=== PATIENT | female | born 1940 | race Caucasian/White ===

== ENCOUNTER 2018-05-07 14:53 | Inpatient (IN) | payer OTHER ==
[~2018-05-07] VITALS: Ht 157.5 cm; Wt 72.0 kg
[~2018-05-07 14:53] MED LIST: ALEVE220 M2 PO; AMBIEN10 MG PO; AMLODIPINE BESYL5 MG PO; AZITHROMYCIN500 MG PO; GLIPIZIDE10 MG PO; LISINOPRIL2.5 MG PO; METFORMIN HCL500 MG PO; PRAVASTATIN SOD40 MG PO; SLEEP SOFTGEL1 EACH PO; TRIAMCINOLONE A15 G2
[2018-05-07] MEDS ORDERED: PERCOCET 5/31 TABLET PO (18:23)
[2018-05-07 19:04] LABS: HEMATOCRIT 35.2 % (36.0-46.0); HEMOGLOBIN 12.4 G/DL (11.9-15.5); MCH 29.7 PG (29.0-34.0); MCHC 35.2 G/DL (30.0-36.0); MCV 84.4 FL (83-99); PLATELET COUNT 184 K/uL (156-360); RBC DIS.WIDTH-CV 13.5 % (11.8-14.6); RBC DIS.WIDTH-SD 42.3 % (39-53); RED BLOOD COUNT 4.17 M/uL (3.80-5.20); WHITE BLOOD COUNT 15.3 K/uL (4.1-10.2)
[2018-05-07] MEDS ORDERED: AMLODIPINE BESY10 MG PO (19:04)
[2018-05-07] MEDS ORDERED: ALPRAZOLAM0.25 M2 PO (19:10)
[2018-05-07] MEDS ORDERED: ZOLPIDEM TARTRA10 MG PO (19:10)
[2018-05-07 19:12] LABS: CHLORIDE 104 mEq/L (99-109); POTASSIUM 3.6 mEq/L (3.7-5.4); SODIUM 136 mEq/L (136-147)
[2018-05-07 19:13] LABS: GLUCOSE 220 mg/dL (70-99)
[2018-05-07 19:17] LABS: CREATININE 0.8 mg/dL (0.6-1.3); GFR ESTIMATE (CALCULATED) > 59 mL/min/
[2018-05-07 19:18] LABS: UREA NITROGEN (BUN) 20 mg/dL (9-23)
[2018-05-07 20:31] VITALS: BP 155/65
[2018-05-07 23:04] VITALS: BP 131/62
[2018-05-08 04:45] VITALS: BP 122/61
[2018-05-08 07:22] LABS: APPEARANCE SL.HAZY ((CLEAR)); BILIRUBIN NEGATIVE; BLOOD NEGATIVE; COLOR YELLOW ((YELLOW)); GLUCOSE (STRIP) NEGATIVE; KETONES 5; LEUKOCYTES TRACE; NITRITE NEGATIVE; PROTEIN (STRIP) 30; SPECIFIC GRAVITY 1.023 (1.000-1.030); UROBILINOGEN 0.2 MG/DL (0.2-1.0)
[2018-05-08 07:41] LABS: BACTERIA RARE /HPF; EPITHELIAL CELLS 2+ /HPF; MUCUS TRACE /LPF; RED BLOOD CELLS 0-5 /HPF (0-5); WHITE BLOOD CELLS 0-5 /HPF (0-5)
[2018-05-08 08:07] VITALS: BP 139/72
[2018-05-08 11:28] VITALS: BP 121/78
[2018-05-08 15:59] VITALS: BP 120/64
[2018-05-08 19:36] VITALS: BP 129/61
[2018-05-08 23:53] VITALS: BP 140/59
[2018-05-09 04:14] VITALS: BP 118/56
[2018-05-09 08:29] VITALS: BP 120/63
[2018-05-09 11:22] VITALS: BP 108/59
[2018-05-09 16:09] VITALS: BP 122/64
[2018-05-09 19:17] VITALS: BP 107/59
[2018-05-09 23:14] VITALS: BP 131/62
[2018-05-10 07:36] VITALS: BP 120/59
[2018-05-10 07:40] LABS: BASOPHIL (%) 0.4 % (0-1); EOSINOPHIL (%) 1.8 % (0-5); EOSINOPHIL COUNT 0.1 K/uL (0-0.3); HEMATOCRIT 29.4 % (36.0-46.0); IMMATURE GRANULOCYTE (%) 0.6 % (0.0-0.7); LYMPHOCYTE (%) 18.5 % (15-42); LYMPHOCYTE COUNT 1.5 K/uL (1.0-2.8); MCH 29.4 PG (29.0-34.0); MCV 86.5 FL (83-99); MONOCYTE (%) 14.1 % (3-12); MONOCYTE COUNT 1.1 K/uL (0-0.8); NEUTROPHIL (%) 64.6 % (45-76); NEUTROPHIL COUNT 5.1 K/uL (1.8-6.4); PLATELET COUNT 169 K/uL (156-360); RBC DIS.WIDTH-CV 13.8 % (11.8-14.6); RBC DIS.WIDTH-SD 43.1 % (39-53); WHITE BLOOD COUNT 7.9 K/uL (4.1-10.2)
[2018-05-10 07:53] LABS: CHLORIDE 103 MEQ/L (99-109); CREATININE 0.5 MG/DL (0.6-1.3); GFR ESTIMATE (CALCULATED) > 59 mL/min/; POTASSIUM 3.6 MEQ/L (3.7-5.4); SODIUM 135 MEQ/L (136-147); UREA NITROGEN (BUN) 14 mg/dL (9-23)
[2018-05-10 07:54] LABS: GLUCOSE 109 mg/dL (70-99)
[2018-05-10 11:01] VITALS: BP 113/59
[2018-05-10 15:13] VITALS: BP 119/59
[2018-05-11 00:07] VITALS: BP 136/70
[2018-05-11 07:52] VITALS: BP 157/74
[2018-05-11 16:01] VITALS: BP 134/67
[2018-05-11 23:55] VITALS: BP 148/70
[2018-05-12 07:36] VITALS: BP 150/67
[2018-05-12 15:59] VITALS: BP 130/67
[2018-05-12] MEDS ORDERED: ENDOCET 5-3251 EACH PO (18:42)
[2018-05-12] MEDS ORDERED: NOVOLOG 10100 UNITS/ SC (18:42)
[2018-05-12] MEDS ORDERED: KLOR-CON M1010 MEQ PO (18:42)
[2018-05-12 23:45] VITALS: BP 141/77
[2018-05-13 07:28] VITALS: BP 151/72
[2018-05-13 15:20] VITALS: BP 132/70
[2018-05-13 23:06] VITALS: BP 131/63
[2018-05-14 08:10] VITALS: BP 154/70
[2018-05-14 14:57] VITALS: BP 136/70
[2018-05-14 23:20] VITALS: BP 129/76
[2018-05-15 07:47] VITALS: BP 135/66
[2018-05-15 15:47] VITALS: BP 130/63
[2018-05-15 23:23] VITALS: BP 137/78
[2018-05-16 08:41] VITALS: BP 13/65
== END 2018-05-16 12:53 | DRG 563 ==
LOC: EME 14:53 → 3EAST 18:55 → EDOF 18:55 → ENRESERV 19:07 → 3EAST 20:22
PROVIDERS: Emergency Medicine; Internal Medicine
DX: S42.232A 3-part fracture of surgical neck of left humerus, initial encounter for closed fracture (principal); S00.83XA Contusion of other part of head, initial encounter; W01.0XXA Fall on same level from slipping, tripping and stumbling without subsequent striking against object, initial encounter; Y93.G3 Activity, cooking and baking; Y92.000 Kitchen of unspecified non-institutional (private) residence as the place of occurrence of the external cause; E87.6 Hypokalemia; I10 Essential (primary) hypertension; E78.5 Hyperlipidemia, unspecified; F32.9 Major depressive disorder, single episode, unspecified; E11.9 Type 2 diabetes mellitus without complications; E66.9 Obesity, unspecified; D64.9 Anemia, unspecified; E53.8 Deficiency of other specified B group vitamins; F41.9 Anxiety disorder, unspecified; G47.00 Insomnia, unspecified; Z87.11 Personal history of peptic ulcer disease; Z88.2 Allergy status to sulfonamides; Z68.29 Body mass index [BMI] 29.0-29.9, adult
CPT/HCPCS: 70450; 71045; 73030; 73200; 80048; 81003; 82948; 85025; 85027; 99281; 99284; J1815